=== PATIENT | female | born 1960 | race American Indian/Alaskan Native ===

== ENCOUNTER 2017-03-22 08:10 | Observation (INO) | payer MEDICAID, OTHER ==
[2017-03-22 08:10] VITALS: BMI 37.4
[2017-03-22 09:47] LABS: BASO # 0.1 K/uL (0.0-0.2); BASO % 0.8 % (0.0-2.0); EOS # 0.3 K/uL (0.0-0.7); EOS % 3.1 % (0.0-4.0); HEMOGLOBIN 11.5 g/dL (11.0-16.0); LYMPH # 2.8 K/uL (1.0-4.3); LYMPH % 33.3 % (20.0-40.0); MEAN CORPUSCULAR HEMOGLOBIN 28.1 pg (27.0-31.0); MEAN CORPUSCULAR HGB CONC 32.4 g/dL (33.0-37.0); MEAN PLATELET VOLUME 8.7 fL (7.2-11.7); MONO # 0.6 K/uL (0.0-0.8); MONO % 7.7 % (0.0-10.0); NEUT # 4.6 K/uL (1.8-7.0); NEUT % 55.1 % (50.0-75.0); RBC 4.08 Mil/uL (3.80-5.20); WHITE BLOOD COUNT 8.3 K/uL (4.8-10.8)
--- NOTE | 2017-03-22 09:56 | C.PDOC ---
History Of Present Illness 56-year-old female, PMHx includes TIA, presents to the emergency department with complaints of right extremity sided numbness since waking up at 07:00 this morning. patient notes a mild headache, which has now resolved. States she has a Hx of similar symptoms in past, preceding her TIA. Denies any nausea/vomiting , visual/speech changes, dizziness, or any other associated symptoms. No other complaints at this time. Time Seen by Provider: 03/22/17 08:37 Chief Complaint (Nursing): Upper Extremity Problem/Injury History Per: Patient History/Exam Limitations: no limitations Onset/Duration Of Symptoms: Mins Current Symptoms Are (Timing): Still Present Severity: Moderate Past Medical History Reviewed: Historical Data, Nursing Documentation, Vital Signs Vital Signs: Last Vital Signs Temp 98.4 F 03/22/17 08:15 Pulse 70 03/22/17 14:59 Resp 19 03/22/17 14:59 BP 141/79 03/22/17 14:59 Pulse Ox 100 03/22/17 14:59 - Medical History PMH: HTN, Hypercholesterolemia, TIA Denies: Chronic Kidney Disease Family History: States: No Known Family Hx - Social History Hx Alcohol Use: Yes Hx Substance Use: No - Immunization History Hx Tetanus Toxoid Vaccination: No Hx Influenza Vaccination: No Hx Pneumococcal Vaccination: No Review Of Systems Except As Marked, All Systems Reviewed And Found Negative. Constitutional: Negative for: Fever, Chills Cardiovascular: Negative for: Chest Pain, Palpitations Respiratory: Negative for: Shortness of Breath Gastrointestinal: Negative for: Nausea, Vomiting Musculoskeletal: Positive for: Arm Pain, Leg Pain Neurological: Positive for: Weakness, Numbness. Negative for: Headache, Dizziness Physical Exam - Physical Exam Appears: Non-toxic, No Acute Distress Skin: Warm, Dry, No Rash Head: Atraumatic, Normacephalic Eye(s): bilateral: Normal Inspection, PERRL, EOMI Nose: Normal Oral Mucosa: Moist Lips: Normal Appearing Neck: Normal ROM Cardiovascular: Rhythm Regular, No Friction Rub, No Murmur Respiratory: Normal Breath Sounds, No Accessory Muscle Use, No Rales, No Rhonchi , No Wheezing Gastrointestinal/Abdominal: Soft, No Tenderness Back: Normal Inspection, No CVA Tenderness, No Vertebral Tenderness, No Paraspinal Tenderness Extremity: Normal ROM, No Tenderness, No Swelling Neurological/Psych: Oriented x3, Normal Speech, Normal Cognition, Normal Cranial Nerves (normal gaze, tongue is midline, ), Normal Motor, Normal Reflexes , Other (Decreased sensation to the Right upper and lower extremities) Gait: Steady ED Course And Treatment - Laboratory Results Result Diagrams: 03/22/17 09:34 03/22/17 09:34 ECG: Interpreted By Co ECG Rhythm: Sinus Rhythm ECG Interpretation: Normal Interpretation Of ECG: normal axis, normal ST-T waves Rate From EC O2 Sat by Pulse Oximetry: 97 (RA) Pulse Ox Interpretation: Normal - Radiology CXR: Interpreted by Me CXR Interpretation: Yes: No Acute Disease. No: Infiltrates - CT Scan/US CT Head Other Rad Studies (CT/US): Read By Radiologist, Radiology Report Reviewed CT/US Interpretation: FINDINGS: HEMORRHAGE: No intracranial hemorrhage. BRAIN : No mass effect or edema. No atrophy or chronic microvascular ischemic changes. VENTRICLES: Unremarkable. No hydrocephalus. CALVARIUM: Unremarkable. PARANASAL SINUSES: Unremarkable as visualized. No significant inflammatory changes. MASTOID AIR CELLS: Unremarkable as visualized. No inflammatory changes. OTHER FINDINGS: None. IMPRESSION: Normal CT of the Head. No evidence of acute infarct. No intracranial mass or hemorrhage. NIHSS Stroke Scale - Date/Time Evaluation Performed Date Performed: 03/22/17 - How Severe is the Stoke Level of Consciousness: 0=Alert LOC to Questions: 0=Both comments correct LOC to commands: 0=Obeys both correctly Best Gaze: 0=Normal Visual: 0=No visual loss Facial: 0=Normal Motor Arm - Left: 0=No drift Motor Arm - Right: 0=No drift Motor Leg - Left: 0=No drift Motor Leg - Right: 0=No drift Limb Ataxia: 0=Absent Sensory: 1=Mild to moderate loss Best Language: 0=No aphasia Dysarthia: 0=Normal articulation Extinction & Inattention (Neglect): 0=Normal, no object Score: 1 Severity Of Stroke: 1-4= Minor Stroke rTPA Inclusion/Exclusion - Refusal of Treatment Patient Refused Treatment: No - Inclusion Criteria for Altepase Patient is 18 years or Older: Yes The Clinical Diagnosis of Ischemic Stroke That is Causing a Potentially Disabling Neurological Deficit: No Time of Onset is Well Established to be Less Than 270 Minute Before Treatment Would Begin: No Risk/Benefit Discussed With Patient/Family Member Present: No Medical Decision Making Medical Decision Making: The case was discussed with Dr. Galan (neurologist oncall) who states that the patient should get Aspirin and loaded with Plavix 300mg. Requests for MRA of the head and neck to be ordered. CAse [facility] who agrees to admit the patient to her Disposition - Disposition Disposition: HOSPITALIZED Disposition Time: 12:06 Condition: FAIR - Clinical Impression Clinical Impression: Numbness on right side, CVA (cerebral vascular accident) - PA / LAYOUT OPERATOR / Resident Statement MD/DO has reviewed & agrees with the documentation as recorded. - Scribe Statement The provider has reviewed the documentation as recorded by the Scribe (Humberto Lopez) All medical record entries made by the Scribe were at my direction and personally dictated by me. I have reviewed the chart and agree that the record accurately reflects my personal performance of the history, physical exam, medical decision making, and the department course for this patient. I have also personally directed, reviewed, and agree with the discharge instructions and disposition.
[2017-03-22 09:57] LABS: GFR AFRICAN-AMERICAN > 60; GFR NON-AFRICAN AMERICAN > 60
[2017-03-22 09:58] LABS: ALT/SGPT 23 U/L (9-52); AST/SGOT 25 U/L (14-36); BLOOD UREA NITROGEN 15 mg/dL (7-17); CALCIUM 9.4 mg/dl (8.6-10.4); HDL CHOLESTEROL 35 mg/dL (30-70); MEAN CELL VOLUME 86.7 fL (81.0-99.0)
--- NOTE | 2017-03-22 10:07 | CT ---
PROCEDURE: CT HEAD WITHOUT CONTRAST. HISTORY: R sided numbness, hx of TIA COMPARISON: 01/30/2016 TECHNIQUE: Axial computed tomography images were obtained through the head/brain without intravenous contrast. Radiation dose: Total exam DLP = 880.66 mGy-cm. This CT exam was performed using one or more of the following dose reduction techniques: Automated exposure control, adjustment of the mA and/or kV according to patient size, and/or use of iterative reconstruction technique. FINDINGS: HEMORRHAGE: No intracranial hemorrhage. BRAIN: No mass effect or edema. No atrophy or chronic microvascular ischemic changes. VENTRICLES: Unremarkable. No hydrocephalus. CALVARIUM: Unremarkable. PARANASAL SINUSES: Unremarkable as visualized. No significant inflammatory changes. MASTOID AIR CELLS: Unremarkable as visualized. No inflammatory changes. OTHER FINDINGS: None. IMPRESSION: Normal CT of the Head. No evidence of acute infarct. No intracranial mass or hemorrhage.
[2017-03-22 10:10] LABS: LDL CHOLESTEROL 119 mg/dL (0-129)
--- NOTE | 2017-03-22 10:13 | RAD ---
HISTORY: weakness COMPARISON: 01/30/2016 FINDINGS: LUNGS: No active pulmonary disease. PLEURA: No significant pleural effusion identified, no pneumothorax apparent. CARDIOVASCULAR: Normal. OSSEOUS STRUCTURES: No significant abnormalities. VISUALIZED UPPER ABDOMEN: Normal. OTHER FINDINGS: None. IMPRESSION: No active disease.
[2017-03-22 10:37] LABS: PROTHROMBIN TIME 11.3 SECONDS (9.7-12.2)
[2017-03-22] MEDS ORDERED: Potassium Chloride 20 mEq ER Tab PO STA (12:03)
[2017-03-22] MEDS ORDERED: Potassium Chloride 20 mEq ER Tab PO ONE (12:13)
--- NOTE | 2017-03-22 12:35 | CP.PCM.CON ---
History of Present Illness - History of Present Illness History of Present Illness: Mrs. Tadeo is a 56-year-old woman with a past medical history of hypertension and a previous ischemic stroke in 2013, who states that she woke up this morning with right arm and leg numbness and some weakness. Her previous stroke also involved the right side of the body and was associated with speech difficulty and facial droop. She improved completely from that stroke, but does have occasional recurrences of her symptoms. She says that last night she was okay, and she first noticed her symptoms when she woke up this morning. She did have a minor headache, but that is gone now. She denied visual changes , chest pain, shortness of breath, dizziness, or GI discomfort. Review of Systems - Review of Systems All systems: reviewed and no additional remarkable complaints except Past Patient History - Past Medical History & Family History Past Medical History?: Yes - Past Social History Smoking Status: Never Smoked - CARDIAC Hx Hypercholesterolemia: Yes Hx Hypertension: Yes - PULMONARY Hx Respiratory Disorders: No - NEUROLOGICAL Hx Transient Ischemic Attacks (TIA): Yes - HEENT Hx HEENT Problems: No - RENAL Hx Chronic Kidney Disease: No - ENDOCRINE/METABOLIC Hx Endocrine Disorders: No - HEMATOLOGICAL/ONCOLOGICAL Hx Blood Disorders: No - INTEGUMENTARY Hx Dermatological Problems: No - MUSCULOSKELETAL/RHEUMATOLOGICAL Hx Musculoskeletal Disorders: No Hx Falls: No - GASTROINTESTINAL Hx Gastrointestinal Disorders: No - GENITOURINARY/GYNECOLOGICAL Hx Genitourinary Disorders: No - PSYCHIATRIC Hx Substance Use: No - SURGICAL HISTORY Hx Surgeries: No - ANESTHESIA Hx Anesthesia: No Meds Allergies/Adverse Reactions: Allergies Allergy/AdvReac Type Severity Reaction Status Date / Time No Known Allergies Allergy Verified 03/22/17 08:18 Physical Exam - Constitutional Appears: Well - Head Exam Head Exam: ATRAUMATIC, NORMAL INSPECTION, NORMOCEPHALIC - Eye Exam Eye Exam: EOMI, Normal appearance, PERRL - ENT Exam ENT Exam: Mucous Membranes Moist, Normal Exam - Neck Exam Neck exam: Positive for: Normal Inspection - Respiratory Exam Respiratory Exam: Clear to Auscultation Bilateral, NORMAL BREATHING PATTERN - GI/Abdominal Exam GI & Abdominal Exam: Normal Bowel Sounds, Soft. absent: Tenderness - Rectal Exam Rectal Exam: Deferred - Extremities Exam Extremities exam: Positive for: normal inspection - Back Exam Back exam: NORMAL INSPECTION - Neurological Exam Neurological exam: Abnormal Gait, Alert, CN II-XII Intact, Oriented x3 - Expanded Neurological Exam Expanded Patient oriented to: person, place, time Cranial nerves: Facial Sensation: Abnormal Right Cerebellar Function: Finger to Nose: Normal, Heel to Hughes: Normal Upper motor neuron: Babinski Sign: Normal Sensory exam: Lower Extremity Light Touch: Abnormal Right, Lower Extremity Pin Prick: Abnormal Right, Upper Extremity Light Touch: Abnormal Right, Upper Extremity Pin Prick: Abnormal Right Neuro motor strength exam: Left Upper Extremity: 5, Right Upper Extremity: 4, Left Lower Extremity: 5, Right Lower Extremity: 4 DTR: Achilles Tendon Left: 2+, Achilles Tendon Right: 2+, Bicep Left: 2+, Bicep Right: 2+, Brachioradialis Left: 2+, Brachioradialis Right: 2+, Patellar Left: 2 +, Patellar Right: 2+, Tricep Left: 2+, Tricep Right: 2+ - Psychiatric Exam Psychiatric exam: Normal Affect, Normal Mood - Skin Skin Exam: Dry, Intact, Normal Color, Warm Results - Vital Signs Recent Vital Signs: Last Vital Signs Temp 98.4 F 03/22/17 08:15 Pulse 55 L 03/22/17 11:02 Resp 12 03/22/17 11:02 BP 150/82 03/22/17 11:02 Pulse Ox 97 03/22/17 12:08 - Labs Result Diagrams: 03/22/17 09:34 03/22/17 09:34 - Imaging and Cardiology CT scan - head Status: Image reviewed by me, Report reviewed by me (No acute findings. ) Assessment & Plan (1) CVA (cerebral vascular accident) Assessment and Plan: This could be resurgence of the previous stroke symptoms, or may be a new ischemic event. I recommend admission for work-up and treatment, and the followin. Telemetry 2. MRI of the brain and MRA of the head/neck without contrast 3. Echocardiogram with bubble study 4. Load with Plavix 300 mg PO once, and continue 75 mg daily along with aspirin 81 mg daily for a total of 21 days, after that, continue Plavix indefinitely. 5. Permissive hypertension (do not treat a BP that is lower than 220/110 mm Hg for the first 24-36 hours) 6. Check lipid panel, HbA1c, ESR, CRP, B12, folate and TSH 7. Statin to maintain LDL< 100 8. PT/OT eval and treat 9. DVT Px 10. Case management consult Status: Acute Priority: High (2) Numbness on right side Status: Acute
--- NOTE | 2017-03-22 13:25 | CP.PCM.HP ---
<Ashley Gupta E - Last Filed: 03/22/17 21:19> History of Present Illness - History of Present Illness History of Present Illness: HPI: Patient is a 56 year old female with past medical history of HTN, HLD, TIA , who presents to the ED with complaints with right arm and leg weakness and numbness that started at 7:00am this morning when she woke up. Patient reports that she was unable to move her right arm and leg, thus she had to tap herself multiple times in order to alleviate the numbness. Patient reports that she phoned a co-worker, who told her that she sounded funny and her speech was slurred. Patient reports that she had a headache this morning which lasted for 5 -10minutes. 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 Patient denies any chest pain, sob, nausea, vomiting, diaphoresis, fever, chills, fecal incontinence, urinary incontinence, history of clots and visual changes. Meds given in the ER: 1. Aspirin 325 mg PO 2. Plavix 300mg PO 3. K-dur 40meq Pmhx: TIA, HTN, HLD Pshx: Endometrial biopsy and D & C (2008) Fhx: Mother: uterine cancer; maternal gradmother: uterine cancer ( ); paternal grandmother: Lung cancer () Meds: Aspirin 325mg PO daily, HCTZ 12.5MG PO daily, Metoprolo tartrate 25mg PO daily. 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 Present on Admission - Present on Admission Any Indicators Present on Admission: No Review of Systems - Constitutional Constitutional: absent: Chills, Fever, Headache - EENT Eyes: absent: Blurred Vision, Loss of Peripheral Vision Ears: absent: Dizziness Nose/Mouth/Throat: absent: Neck Pain - Cardiovascular Cardiovascular: absent: Chest Pain, Diaphoresis, Dyspnea, Lightheadedness, Palpitations - Respiratory Respiratory: Dyspnea on Exertion. absent: Dyspnea - Gastrointestinal Gastrointestinal: absent: Abdominal Pain, Fecal Incontinence - Musculoskeletal Musculoskeletal: Muscle Weakness, Numbness. absent: Abnormal Gait - Neurological Neurological: Numbness, Weakness. absent: Dizziness - Endocrine Endocrine: absent: Fatigue, Palpitations Past Patient History - Past Medical History & Family History Past Medical History?: Yes - Past Social History Smoking Status: Never Smoked - CARDIAC Hx Hypercholesterolemia: Yes Hx Hypertension: Yes - PULMONARY Hx Respiratory Disorders: No - NEUROLOGICAL Hx Transient Ischemic Attacks (TIA): Yes - HEENT Hx HEENT Problems: No - RENAL Hx Chronic Kidney Disease: No - ENDOCRINE/METABOLIC Hx Endocrine Disorders: No - HEMATOLOGICAL/ONCOLOGICAL Hx Blood Disorders: No - INTEGUMENTARY Hx Dermatological Problems: No - MUSCULOSKELETAL/RHEUMATOLOGICAL Hx Musculoskeletal Disorders: No Hx Falls: No - GASTROINTESTINAL Hx Gastrointestinal Disorders: No - GENITOURINARY/GYNECOLOGICAL Hx Genitourinary Disorders: No - PSYCHIATRIC Hx Substance Use: No - SURGICAL HISTORY Hx Surgeries: No - ANESTHESIA Hx Anesthesia: No Meds Allergies/Adverse Reactions: Allergies Allergy/AdvReac Type Severity Reaction Status Date / Time No Known Allergies Allergy Verified 03/22/17 08:18 Physical Exam - Constitutional Appears: No Acute Distress - Head Exam Head Exam: NORMAL INSPECTION, NORMOCEPHALIC - Eye Exam Eye Exam: EOMI, Normal appearance - ENT Exam ENT Exam: Mucous Membranes Moist, Normal Exam - Respiratory Exam Respiratory Exam: Clear to Auscultation Bilateral, NORMAL BREATHING PATTERN - Cardiovascular Exam Cardiovascular Exam: REGULAR RHYTHM, +S1, +S2 - GI/Abdominal Exam GI & Abdominal Exam: Normal Bowel Sounds, Soft - Neurological Exam Neurological exam: Alert, CN II-XII Intact, Oriented x3 - Psychiatric Exam Psychiatric exam: Normal Affect, Normal Mood - Skin Skin Exam: Dry, Normal Color, Warm Results - Vital Signs Recent Vital Signs: Last Vital Signs Temp 98.4 F 03/22/17 08:15 Pulse 55 L 03/22/17 11:02 Resp 12 03/22/17 11:02 BP 150/82 03/22/17 11:02 Pulse Ox 97 03/22/17 12:08 - Labs Result Diagrams: 03/22/17 09:34 03/22/17 09:34 Labs: Laboratory Results - last 24 hr 03/22/17 12:41 POC Glucose (mg/dL) 90 Assessment & Plan (1) TIA (transient ischemic attack) Assessment and Plan: Right upper and lower extremity weakness and numbness Neurology Consult ---> Dr. Galan on board (Help appreciated) * F/U MRI of the brain and MRA of the head/neck without contrast * F/U Echocardiogram with bubble study * Load with Plavix 300 mg PO once, and continue 75 mg daily along with aspirin 81 mg daily for a total of 21 days, after that, continue Plavix indefinitely. * Permissive hypertension (do not treat a BP that is lower than 220/110 mm Hg for the first 24-36 hours) * F/u Check lipid panel, HbA1c, ESR, CRP, B12, folate and TSH * Statin to maintain LDL< [address] head: negative for intracranial hemorrhage, mass effect, edema, evidence of acute infarct, atrophy and chronic microvascular Chest X-ray: no active disease Neurocheck Q4 hours Crestor 20mg PO HS Metoprolol Tarate 25mg PO daily HCTZ 12.5 mg PO daily PT/OT Evaluation Status: Acute (2) HTN (hypertension) Assessment and Plan: Metoprolol Tarate 25mg PO daily HCTZ 12.5 mg PO daily Monitor Status: Acute (3) Hyperlipemia Assessment and Plan: F/u lipid panel in the am Crestor 20mg PO HS Status: Acute (4) History of TIA (transient ischemic attack) Assessment and Plan: July 2014 Aspirin 81mg PO Plavix 75mg PO daily Status: Acute (5) Prophylactic measure Assessment and Plan: SCD Lovenox 40mg SC daily Pepcid 20mg PO BID PT/OT Evaluation Status: Acute <Kimberly Kramer V - Last Filed: 03/23/17 17:34> Results - Vital Signs Recent Vital Signs: Last Vital Signs Temp 98.2 F 03/23/17 16:00 Pulse 67 03/23/17 16:00 Resp 18 03/23/17 16:00 BP 137/83 03/23/17 16:00 Pulse Ox 96 03/23/17 16:00 - Labs Result Diagrams: 03/23/17 07:02 03/23/17 07:02 Labs: Laboratory Results - last 24 hr 03/23/17 03/23/17 03/23/17 07:02 07:02 07:02 WBC 5.8 RBC 3.86 Hgb 11.1 Hct 33.3 L MCV 86.2 MCH 28.6 MCHC 33.2 RDW 15.0 H Plt Count 350 MPV 8.2 Neut % (Auto) 52.0 Lymph % (Auto) 33.3 Wirt % (Auto) 9.1 Eos % (Auto) 4.6 H Baso % (Auto) 1.0 Neut # 3.0 Lymph # 1.9 Wirt # 0.5 Eos # 0.3 Baso # 0.1 Sodium 137 Potassium 3.1 L Chloride 100 Carbon Dioxide 28 Anion Gap 13 BUN 16 Creatinine 0.8 Est GFR ( Amer) > 60 Est GFR (Non-Af Amer) > 60 POC Glucose (mg/dL) Random Glucose 123 H Hemoglobin A1c 6.0 Calcium 9.0 Total Bilirubin 0.5 AST 23 ALT 29 Alkaline Phosphatase 63 Total Protein 7.2 Albumin 3.5 Globulin 3.7 Albumin/Globulin Ratio 0.9 L Triglycerides 148 Cholesterol 172 LDL Cholesterol Direct 112 HDL Cholesterol 29 L TSH 3rd Generation 1.30 03/23/17 03/23/17 03/23/17 08:02 12:01 17:01 WBC RBC Hgb Hct MCV MCH MCHC RDW Plt Count MPV Neut % (Auto) Lymph % (Auto) Wirt % (Auto) Eos % (Auto) Baso % (Auto) Neut # Lymph # Wirt # Eos # Baso # Sodium Potassium Chloride Carbon Dioxide Anion Gap BUN Creatinine Est GFR ( Amer) Est GFR (Non-Af Amer) POC Glucose (mg/dL) 126 H 95 89 Random Glucose Hemoglobin A1c Calcium Total Bilirubin AST ALT Alkaline Phosphatase Total Protein Albumin Globulin Albumin/Globulin Ratio Triglycerides Cholesterol LDL Cholesterol Direct HDL Cholesterol TSH 3rd Generation Attending/Attestation - Attestation I have personally seen and examined this patient.: Yes I have fully participated in the care of the patient.: Yes I have reviewed all pertinent clinical information: Yes Notes (Text): This is late computer entry for 03/22/17. Patient seen, examined in [id number]. Patient reporting she had worsening of right upper extremity weakness with associated pains. Patient reports prior TIA in 2013 with similar symptoms. Patient denies trauma to the hand/arm/neck. Patient reports she notices she cannot slice cabbage or hold a pen with ease she normally dose. Neurology evaluated patient in emergency and has made recommendations. Patient reports she is claustrophobic; given Ativan 0.5mg IV X1 prior to going to MRI for further imaging. Discussed admitting orders with day-time internal controls manager as follows: Assessment/Plan (1) TIA (transient ischemic attack) Assessment and Plan: Right upper and lower extremity weakness and numbness Neurology Consult ---> Dr. Galan on board (Help appreciated) * F/U MRI of the brain and MRA of the head/neck without contrast * F/U Echocardiogram with bubble study * Load with Plavix 300 mg PO once, and continue 75 mg daily along with aspirin 81 mg daily for a total of 21 days, after that, continue Plavix indefinitely. * Permissive hypertension (do not treat a BP that is lower than 220/110 mm Hg for the first 24-36 hours) * F/u Check lipid panel, HbA1c, ESR, CRP, B12, folate and TSH * Statin to maintain LDL< [address] head: negative for intracranial hemorrhage, mass effect, edema, evidence of acute infarct, atrophy and chronic microvascular Chest X-ray (03/22/17): no active disease Neurocheck Q4 hours Crestor 20mg PO HS (home medication) Metoprolol Tarate 25mg PO daily (home medication) HCTZ 12.5 mg PO daily PT/OT Evaluation Status: Acute (2) HTN (hypertension) Assessment and Plan: Metoprolol Tarate 25mg PO daily HCTZ 12.5 mg PO daily Monitor Status: Acute (3) Hyperlipemia Assessment and Plan: F/u lipid panel in the am Crestor 20mg PO HS Status: Acute (4) History of TIA (transient ischemic attack) Assessment and Plan: July 2014 Aspirin 81mg PO Plavix 75mg PO daily Status: Acute (5) Prophylactic measure Assessment and Plan: SCD Lovenox 40mg SC daily Pepcid 20mg PO BID PT/OT Evaluation Status: Acute
[2017-03-22] MEDS ORDERED: Enoxaparin 40 mg Syringe ONE (14:50)
[2017-03-22] MEDS: Enoxaparin 40 mg Syringe SC SCH (14:51)
[2017-03-23 07:13] LABS: BASO # 0.1 K/uL (0.0-0.2); EOS # 0.3 K/uL (0.0-0.7); EOS % 4.6 % (0.0-4.0); HEMOGLOBIN 11.1 g/dL (11.0-16.0); LYMPH # 1.9 K/uL (1.0-4.3); LYMPH % 33.3 % (20.0-40.0); MEAN CELL VOLUME 86.2 fL (81.0-99.0); MEAN CORPUSCULAR HEMOGLOBIN 28.6 pg (27.0-31.0); MEAN CORPUSCULAR HGB CONC 33.2 g/dL (33.0-37.0); MEAN PLATELET VOLUME 8.2 fL (7.2-11.7); MONO # 0.5 K/uL (0.0-0.8); MONO % 9.1 % (0.0-10.0); RBC 3.86 Mil/uL (3.80-5.20); WHITE BLOOD COUNT 5.8 K/uL (4.8-10.8)
[2017-03-23 08:46] LABS: ALBUMIN 3.5 g/dL (3.5-5.0)
[2017-03-23 08:49] LABS: ALB/GLOB RATIO 0.9 (1.0-2.1); AST/SGOT 23 U/L (14-36); BLOOD UREA NITROGEN 16 mg/dL (7-17); GFR AFRICAN-AMERICAN > 60; GFR NON-AFRICAN AMERICAN > 60
[2017-03-23 08:50] LABS: ALT/SGPT 29 U/L (9-52); HDL CHOLESTEROL 29 mg/dL (30-70)
[2017-03-23 09:02] LABS: LDL CHOLESTEROL 112 mg/dL (0-129)
[2017-03-23] MEDS ORDERED: Metoprolol Succinate 25 mg XL Tab PO SCH (10:00)
[2017-03-23] MEDS ORDERED: Metoprolol Succinate 50 mg XL Tab PO SCH (10:00)
[2017-03-23] MEDS ORDERED: Potassium Chloride 20 mEq ER Tab PO ONE (10:15)
[2017-03-23] MEDS: Enoxaparin 40 mg Syringe SC SCH (10:26)
--- NOTE | 2017-03-23 12:42 | MRI ---
PROCEDURE: MRI BRAIN WITHOUT CONTRAST HISTORY: r/o CVA COMPARISON: CT head without contrast from 03/22/2017 and MRI brain with contrast from 02/01/2016. TECHNIQUE: Multiplanar, multisequence MR images of the brain were obtained without intravenous contrast enhancement. FINDINGS: HEMORRHAGE: None DWI: No evidence of an acute or early subacute infarction. BRAIN PARENCHYMA: Reyes-white matter differentiation is preserved. There is no mass, mass effect or abnormal extra-axial fluid collection. There is no territorial infarction. The midline sagittal structures are normal. VENTRICLES: There is mild global parenchymal volume loss and proportionate enlargement of the ventricles and cortical sulci, slightly advanced for the patient's age. . CRANIUM: There is normal bone marrow signal pattern. ORBITS: Grossly unremarkable. PARANASAL SINUSES/MASTOIDS: Predominantly clear VASCULAR SYSTEM: There are normal signal voids in the larger intracranial arteries. OTHER FINDINGS: None. IMPRESSION: No acute intracranial abnormality. Specifically, no evidence of acute infarction. Mild age advanced global parenchymal volume loss.
--- NOTE | 2017-03-23 12:43 | MRI ---
PROCEDURE: Magnetic Resonance Angiography Brain HISTORY: r/o CVA COMPARISON: None available. TECHNIQUE: 3D time of flight MR angiography of the intracranial arteries was performed. Rotating maximum intensity projection images were generated. FINDINGS: INTERNAL CEREBRAL ARTERIES: Normal in caliber. The skull base, petrous, cavernous and supraclinoid segments are bilaterally widely patient. ANTERIOR CEREBRAL ARTERIES: Normal in caliber. A1 and A2 segments are widely patent. Smaller distal branches unremarkable, as visualized. MIDDLE CEREBRAL ARTERIES: Normal in caliber. M1 and M2 segments are widely patent. Perisylvian branches grossly symmetric. POSTERIOR CIRCULATION: Basilar Artery: Normal in caliber. Distal Vertebral Arteries: Normal in caliber. The left vertebral artery is dominant, an anatomic variant. Posterior Cerebral Arteries: Normal in caliber. There is origin of bilateral posterior cerebral arteries, an anatomic variant. Posterior Inferior Cerebellar Arteries: Normal in caliber. ANEURYSM/ VASCULAR MALFORMATIONS: None. OTHER FINDINGS: None. IMPRESSION: Normal MR angiography of the brain with anatomic variants as described above. A preliminary report was provided by [employer].
--- NOTE | 2017-03-23 12:43 | MRI ---
PROCEDURE: MR Angiography of the neck without contrast marisela HISTORY: R ext sided weakness COMPARISON: None available. TECHNIQUE: 3D [id number] angiography of the neck was performed. Rotating maximum intensity projection images of the cervical carotid and vertebral arteries were generated. The origins of the common carotid arteries were not visualized, which is a limitation inherent to the non-contrast time of flight technique. Examination is limited by patient motion. FINDINGS: RIGHT CAROTID ARTERIES: Common Carotid Artery: Normal. Carotid Bifurcation: Normal. Internal Carotid Artery:Normal. External Carotid Artery (proximal branches): Normal. LEFT CAROTID ARTERIES: Common Carotid Artery: Normal. Carotid Bifurcation: Normal. Internal Carotid Artery:Normal. External Carotid Artery (proximal branches): Normal. VERTEBRAL ARTERIES: Right Vertebral Artery: Normal. Left Vertebral Artery: Normal. The left vertebral artery is dominant, an anatomic variant. OTHER FINDINGS: None. IMPRESSION: Limited examination due to patient motion, allowing for this no hemodynamically significant stenosis. A preliminary report was provided by [employer] services.
--- NOTE | 2017-03-23 18:30 | CP.PCM.PN ---
<Amanda Mxion - Last Filed: 03/23/17 18:26> Subjective - Date & Time of Evaluation Date of Evaluation: 03/23/17 Time of Evaluation: 18:27 - Subjective Subjective: Medicine Progress Note- Dr. Kramer Service Patient was seen and examined at bedside in no acute distress. Patient states she is feeling better. She still has chest pressure that radiates to her back when laying down which is relieved when sitting. Patient was explaining that with her right upper extremity and right lower extremity weakness, she has difficulty cutting vegetables and wearing certain shoes. Patient denies having chest pain, abdominal pain, palpitations, shortness of breath, nausea, vomiting , and dizziness. Objective - Vital Signs/Intake and Output Vital Signs (last 24 hours): Temp Pulse Resp BP Pulse Ox 98.2 F 67 18 138/70 96 03/23/17 16:00 03/23/17 16:00 03/23/17 16:00 03/23/17 18:00 03/23/17 16:00 - Medications Medications: Current Medications Aspirin (Ecotrin) 81 mg PO DAILY [facility] Stop: 04/13/17 10:01 Last Admin: 03/23/17 10:25 Dose: 81 mg Clopidogrel Bisulfate (Plavix) 75 mg PO DAILY [facility] Stop: 04/13/17 10:01 Last Admin: 03/23/17 10:26 Dose: 75 mg Enoxaparin Sodium (Lovenox) 40 mg SC DAILY [facility] Last Admin: 03/23/17 10:26 Dose: 40 mg Famotidine (Pepcid) 20 mg PO BID [facility] Last Admin: 03/23/17 18:00 Dose: 20 mg Hydrochlorothiazide (Microzide) 12.5 mg PO DAILY [facility] Last Admin: 03/23/17 10:25 Dose: 12.5 mg Metoprolol Tartrate (Lopressor) 25 mg PO BID [facility] Last Admin: 03/23/17 18:00 Dose: 25 mg Rosuvastatin Calcium (Crestor) 20 mg PO HS [facility] Last Admin: 03/22/17 21:21 Dose: 20 mg - Labs Labs: 03/23/17 07:02 03/23/17 07:02 PT 11.3 SECONDS (9.7-12.2) 03/22/17 10:17 INR 1.0 03/22/17 10:17 APTT 30 SECONDS (21-34) 03/22/17 10:17 - Constitutional Appears: No Acute Distress - Head Exam Head Exam: NORMAL INSPECTION, NORMOCEPHALIC - Eye Exam Eye Exam: EOMI, Normal appearance - ENT Exam ENT Exam: Mucous Membranes Moist - Neck Exam Neck Exam: Full ROM, Normal Inspection - Respiratory Exam Respiratory Exam: Clear to Ausculation Bilateral, NORMAL BREATHING PATTERN. absent: Rhonchi, Wheezes - Cardiovascular Exam Cardiovascular Exam: REGULAR RHYTHM, +S1, +S2 - GI/Abdominal Exam GI & Abdominal Exam: Soft, Normal Bowel Sounds. absent: Tenderness - Extremities Exam Extremities Exam: Normal Inspection. absent: Calf Tenderness, Pedal Edema, Tenderness - Neurological Exam Neurological Exam: Alert, Awake, CN II-XII Intact, Oriented x3 Neuro motor strength exam: Left Upper Extremity: 5, Right Upper Extremity: 4, Left Lower Extremity: 5, Right Lower Extremity: 4 - Psychiatric Exam Psychiatric exam: Normal Affect, Normal Mood - Skin Skin Exam: Dry, Intact, Normal Color, Warm Assessment and Plan (1) TIA (transient ischemic attack) Assessment & Plan: Right upper and lower extremity weakness and numbness Neurology Consult ---> Dr. Galan on board (Help appreciated) * MRI of the brain- no acute intracranial abnormality; no evidence of acute infarction; mild age advanced global parenchymal volume loss. * MRA of the head/neck without contrast: Normal * F/U Echocardiogram with bubble study * Load with Plavix 300 mg PO once, and continue 75 mg daily along with aspirin 81 mg daily for a total of 21 days, after that, continue Plavix indefinitely. * Permissive hypertension (do not treat a BP that is lower than 220/110 mm Hg for the first 24-36 hours) * Lipid panel- TG 148, Chol 172, LDL 112, HDL 29 * HbA1c 6.0 * F/U ESR, CRP, B12, Folate * TSH 1.30 * Statin to maintain LDL< [address] head: negative for intracranial hemorrhage, mass effect, edema, evidence of acute infarct, atrophy and chronic microvascular Chest X-ray: no active disease Neurocheck Q4 hours Crestor 20mg PO HS Metoprolol Tarate 25mg PO daily HCTZ 12.5 mg PO daily PT/OT Evaluation Status: Acute (2) History of TIA (transient ischemic attack) Assessment & Plan: July 2014 Aspirin 81mg PO Plavix 75mg PO daily Status: Acute (3) Hyperlipemia Assessment & Plan: Lipid panel- TG 148, Chol 172, LDL 112, HDL 29 Crestor 20mg PO HS Status: Acute (4) HTN (hypertension) Assessment & Plan: Metoprolol Tarate 25mg PO daily HCTZ 12.5 mg PO daily Monitor Status: Acute (5) Hypokalemia Assessment & Plan: K+ 3.1 on 03/23/17 Repleted with K-Dur 40 mEq PO Monitor Status: Acute (6) Prophylactic measure Assessment & Plan: SCD Lovenox 40mg SC daily Pepcid 20mg PO BID PT/OT Evaluation Status: Acute <YuliyaKimberly buitrago V - Last Filed: 03/24/17 09:50> Objective - Vital Signs/Intake and Output Vital Signs (last 24 hours): Temp Pulse Resp BP Pulse Ox 98 F 69 18 136/85 97 03/24/17 07:25 03/24/17 07:25 03/24/17 07:25 03/24/17 07:25 03/24/17 07:25 - Medications Medications: Current Medications Aspirin (Ecotrin) 81 mg PO DAILY [facility] Stop: 04/13/17 10:01 Last Admin: 03/23/17 10:25 Dose: 81 mg Clopidogrel Bisulfate (Plavix) 75 mg PO DAILY [facility] Stop: 04/13/17 10:01 Last Admin: 03/23/17 10:26 Dose: 75 mg Enoxaparin Sodium (Lovenox) 40 mg SC DAILY [facility] Last Admin: 03/23/17 10:26 Dose: 40 mg Famotidine (Pepcid) 20 mg PO BID [facility] Last Admin: 03/23/17 18:00 Dose: 20 mg Hydrochlorothiazide (Microzide) 12.5 mg PO DAILY [facility] Last Admin: 03/23/17 10:25 Dose: 12.5 mg Metoprolol Tartrate (Lopressor) 25 mg PO BID [facility] Last Admin: 03/23/17 18:00 Dose: 25 mg Rosuvastatin Calcium (Crestor) 20 mg PO HS [facility] Last Admin: 03/23/17 21:14 Dose: 20 mg - Labs Labs: 03/24/17 07:40 03/24/17 07:40 PT 11.3 SECONDS (9.7-12.2) 07/05/17 10:17 INR 1.0 03/22/17 10:17 APTT 30 SECONDS (21-34) 03/22/17 10:17 Attending/Attestation - Attestation I have personally seen and examined this patient.: Yes I have fully participated in the care of the patient.: Yes I have reviewed all pertinent clinical information, including history, physical exam and plan: Yes Notes (Text): This is late computer entry for 03/23/17. Patient seen, examined and case discussed with day-time director international. Patient seen this morning during rounds. Patient reports she is feeling better. Patient reports her dexterity of right hand is improved. Patient seen with right hand with pen which improved. Patient completed MRI/MRA imaging yesterday afternoon. Reports available at end of the day. Patient completed echocardiogram awaiting official report. Pending completion of studies with reports. patient is possible discharge tomorrow. Assessment/Plan (1) TIA (transient ischemic attack) Assessment & Plan: Right upper and lower extremity weakness and numbness Neurology Consult ---> Dr. Galan on board (Help appreciated) * MRI of the brain- no acute intracranial abnormality; no evidence of acute infarction; mild age advanced global parenchymal volume loss. * MRA of the head/neck without contrast: Normal * F/U Echocardiogram with bubble study pending * Load with Plavix 300 mg PO once, and continue 75 mg daily along with aspirin 81 mg daily for a total of 21 days, after that, continue Plavix indefinitely. * Permissive hypertension (do not treat a BP that is lower than 220/110 mm Hg for the first 24-36 hours) * Lipid panel- TG 148, Chol 172, LDL 112, HDL 29 * HbA1c 6.0 * TSH 1.30 * Statin to maintain LDL< [address] head: negative for intracranial hemorrhage, mass effect, edema, evidence of acute infarct, atrophy and chronic microvascular Chest X-ray: no active disease Neurocheck Q4 hours Crestor 20mg PO HS Metoprolol Tarate 25mg PO daily updated in EMR HCTZ 12.5 mg PO daily PT/OT Evaluation Status: Acute (2) History of TIA (transient ischemic attack) Assessment & Plan: July 2014 Aspirin 81mg PO Plavix 75mg PO daily Status: Acute (3) Hyperlipemia Assessment & Plan: Lipid panel- TG 148, Chol 172, LDL 112, HDL 29 Crestor 20mg PO HS Status: Acute (4) HTN (hypertension) Assessment & Plan: Metoprolol Tarate 25mg PO daily HCTZ 12.5 mg PO daily Monitor Status: Acute (5) Hypokalemia Assessment & Plan: Monitor and adjust Status: Acute (6) Prophylactic measure Assessment & Plan: SCD b/l Lovenox 40mg SC daily Pepcid 20mg PO BID PT/OT Evaluation Status: Acute
--- NOTE | 2017-03-23 23:57 | CARD ---
APPROVED REPORT EXAM: Two-dimensional and M-mode echocardiogram with Doppler and color Doppler. Other Information Quality : GoodRhythm : NSR INDICATION CVA/TIA RISK FACTORS Hypertension Hyperlipidemia M-Mode DIMENSIONS RVDd1.18 (2.1-3.2cm)Left Atrium (MM)3.78 (2.5-4.0cm) IVSd0.97 (0.7-1.1cm)Aortic Root2.64 (2.2-3.7cm) LVDd5.38 (4.0-5.6cm)Aortic Cusp Exc.1.87 (1.5-2.0cm) PWd0.83 (0.7-1.1cm)FS (%) 32 % LVDs3.64 (2.0-3.8cm)LVEF (%)60 (>50%) Mitral Valve MV E Hnqojdld83.7cm/sMV A Jxjaphgx532.8cm/sE/A ratio0.8 TDI E/Lateral E'0.0E/Medial E'0.0 Tricuspid Valve TR Peak [id number]/sTR Peak [id number] LEFT VENTRICLE The left ventricle is normal size. There is normal left ventricular wall thickness. Left ventricle systolic function is normal. The Ejection Fraction is 55-60%. There is normal LV segmental wall motion. Tissue Doppler imaging reveals abnormal left ventricular diastolic dysfunction. RIGHT VENTRICLE The right ventricle is normal size. There is normal right ventricular wall thickness. The right ventricular systolic function is normal. ATRIA The left atrium size is normal. The right atrium size is normal. The interatrial septum is intact with no evidence for an atrial septal defect. AORTIC VALVE The aortic valve is normal in structure. No aortic regurgitation is present. There is no aortic valvular stenosis. There is no aortic valvular vegetation. MITRAL VALVE The mitral valve is normal in structure. There is no evidence of mitral valve prolapse. There is no mitral valve stenosis. There is no mitral valve regurgitation noted. TRICUSPID VALVE The tricuspid valve is normal in structure. There is mild tricuspid regurgitation. Right ventricular systolic pressure is estimated at 30-40 mmHg. There is mild pulmonary hypertension. PULMONIC VALVE The pulmonic valve is not well visualized. There is mild pulmonic valvular regurgitation. GREAT VESSELS The aortic root is normal in size. PERICARDIAL EFFUSION There is no significant pericardial effusion. <Conclusion> Left ventricle systolic function is normal. The Ejection Fraction is 55-60%. Diastolic dysfunction. No aortic regurgitation is present. There is no mitral valve regurgitation noted. There is mild tricuspid regurgitation. There is mild pulmonary hypertension. There is mild pulmonic valvular regurgitation.
--- NOTE | 2017-03-24 07:10 | CARD ---
APPROVED REPORT EKG Measurement Heart [id number] <Conclusion> Normal sinus rhythm Normal ECG
[2017-03-24 07:50] LABS: BASO # 0.1 K/uL (0.0-0.2); BASO % 0.9 % (0.0-2.0); EOS # 0.3 K/uL (0.0-0.7); EOS % 4.3 % (0.0-4.0); HEMOGLOBIN 11.3 g/dL (11.0-16.0); LYMPH % 32.4 % (20.0-40.0); MEAN CELL VOLUME 86.5 fL (81.0-99.0); MEAN CORPUSCULAR HGB CONC 33.5 g/dL (33.0-37.0); MONO # 0.6 K/uL (0.0-0.8); MONO % 9.4 % (0.0-10.0); NEUT # 3.3 K/uL (1.8-7.0); NRBC % 0.1 % (0.0-2.0); RBC 3.9 Mil/uL (3.80-5.20); RED CELL DISTRIBUTION WIDTH 14.9 % (11.5-14.5); WHITE BLOOD COUNT 6.3 K/uL (4.8-10.8)
[2017-03-24 08:05] VITALS: PULSE 69; RESP 18; TEMP 98; O2SAT 97
[2017-03-24 08:05] LABS: ALBUMIN 3.5 g/dL (3.5-5.0)
[2017-03-24 08:08] LABS: ALT/SGPT 28 U/L (9-52); AST/SGOT 21 U/L (14-36); BLOOD UREA NITROGEN 11 mg/dL (7-17); GFR AFRICAN-AMERICAN > 60; GFR NON-AFRICAN AMERICAN > 60
[2017-03-24 08:09] LABS: CALCIUM 8.9 mg/dl (8.6-10.4); MAGNESIUM 1.5 mg/dL (1.6-2.3)
[2017-03-24] MEDS: Enoxaparin 40 mg Syringe SC SCH (09:55)
[2017-03-24 09:56] VITALS: BP 126/78
[2017-03-24] MEDS ORDERED: Magnesium Citrate Oral SOL (300 ml) PO ONE (12:03)
[2017-03-24] MEDS ORDERED: Potassium Chloride 20 mEq ER Tab PO SCH (12:15)
--- NOTE | 2017-03-24 15:42 | CP.PCM.DIS ---
<Gaviota Mendez - Last Filed: 03/24/17 15:48> Provider - Provider Date of Admission: 03/22/17 12:05 Attending physician: Kimberly Kramer DO Primary care physician: Dr. Conner Consults: Neurology: Dr. Galan Time Spent in preparation of Discharge (in minutes): 45 Diagnosis - Discharge Diagnosis (1) Hyperlipidemia Status: Chronic (2) History of TIA (transient ischemic attack) Status: Acute (3) HTN (hypertension) Status: Chronic Hospital Course - Lab Results Lab Results: Most Recent Lab Values WBC 6.3 K/uL (4.8-10.8) 03/24/17 07:40 RBC 3.90 Mil/uL (3.80-5.20) 03/24/17 07:40 Hgb 11.3 g/dL (11.0-16.0) 03/24/17 07:40 Hct 33.7 % (34.0-47.0) L 03/24/17 07:40 MCV 86.5 fL (81.0-99.0) 03/24/17 07:40 MCH 29.0 pg (27.0-31.0) 03/24/17 07:40 MCHC 33.5 g/dL (33.0-37.0) 03/24/17 07:40 RDW 14.9 % (11.5-14.5) H 03/24/17 07:40 Plt Count 357 K/uL (130-400) 03/24/17 07:40 MPV 8.0 fL (7.2-11.7) 03/24/17 07:40 Neut % (Auto) 53.0 % (50.0-75.0) 03/24/17 07:40 Lymph % (Auto) 32.4 % (20.0-40.0) 03/24/17 07:40 [place] % (Auto) 9.4 % (0.0-10.0) 03/24/17 07:40 Eos % (Auto) 4.3 % (0.0-4.0) H 03/24/17 07:40 Baso % (Auto) 0.9 % (0.0-2.0) 03/24/17 07:40 Neut # 3.3 K/uL (1.8-7.0) 03/24/17 07:40 Lymph # 2.0 K/uL (1.0-4.3) 03/24/17 07:40 [place] # 0.6 K/uL (0.0-0.8) 03/24/17 07:40 Eos # 0.3 K/uL (0.0-0.7) 03/24/17 07:40 Baso # 0.1 K/uL (0.0-0.2) 03/24/17 07:40 PT 11.3 SECONDS (9.7-12.2) 03/22/17 10:17 INR 1.0 03/22/17 10:17 APTT 30 SECONDS (21-34) 03/22/17 10:17 Sodium 139 mmol/L (132-148) 03/24/17 07:40 Potassium 3.3 mmol/L (3.6-5.2) L 03/24/17 07:40 Chloride 101 mmol/L (98-107) 03/24/17 07:40 Carbon Dioxide 28 mmol/L (22-30) 03/24/17 07:40 Anion Gap 13 (10-20) 03/24/17 07:40 BUN 11 mg/dL (7-17) 03/24/17 07:40 Creatinine 0.8 MG/DL (0.7-1.2) 03/24/17 07:40 Est GFR ( Amer) > 60 03/24/17 07:40 Est GFR (Non-Af Amer) > 60 03/24/17 07:40 POC Glucose (mg/dL) 114 mg/dL (65-110) H 03/24/17 11:31 Random Glucose 110 mg/dL (65-105) H 03/24/17 07:40 Hemoglobin A1c 6.0 % (4.2-6.5) 03/23/17 07:02 Calcium 8.9 mg/dl (8.6-10.4) 03/24/17 07:40 Phosphorus 3.2 mg/dL (2.5-4.5) 03/24/17 07:40 Magnesium 1.5 mg/dL (1.6-2.3) L 03/24/17 07:40 Total Bilirubin 0.5 mg/dL (0.2-1.3) 03/24/17 07:40 AST 21 U/L (14-36) 03/24/17 07:40 ALT 28 U/L (9-52) 03/24/17 07:40 Alkaline Phosphatase 65 U/L (38-126) 03/24/17 07:40 Troponin I < 0.0120 ng/mL (0.00-0.120) 03/22/17 09:34 Total Protein 7.2 g/dL (6.3-8.3) 03/24/17 07:40 Albumin 3.5 g/dL (3.5-5.0) 03/24/17 07:40 Globulin 3.7 gm/dL (2.2-3.9) 03/24/17 07:40 Albumin/Globulin Ratio 1.0 (1.0-2.1) 03/24/17 07:40 Triglycerides 148 mg/dL (0-149) 03/23/17 07:02 Cholesterol 172 mg/dL (0-199) 03/23/17 07:02 LDL Cholesterol Direct 112 mg/dL (0-129) 03/23/17 07:02 HDL Cholesterol 29 mg/dL (30-70) L 03/23/17 07:02 TSH 3rd Generation 1.30 mIU/L (0.46-4.68) 03/23/17 07:02 - Hospital Course Hospital Course: 56 year old female with past medical history of TIA, HTN and HLD was admitted to hospital for right sided weakness and numbness that she woke up with in the morning of admission. CT scan on admission was negative. Patient was given loading dose of Aspirin and Plavix in ED. Neurology, Dr. Galan was consulted. MRI of brain showed no acute changes. MRA of brain and neck were also negative. Patient had echocardiogram done which was normal with EF of 55-60%. Lab work showed HgbA1c of 6.0, a normal lipid panel and a normal TSH. Patient' s symptoms resolved and she was discharged home. Patient is safe for discharge home. Patient is to follow up with PMD, Dr. Rosen upon discharge. Patient is to continue taking Aspirin 81 mg po qd and Plavix 75 mg po qd for 21 days. After 21 days are complete, patient is to stop Aspirin and continue taking Plavix 75 mg po qd indefinitely. Patient is to continue taking her home medications as prescribed. If symptoms return, please go to ED. This is a summary of patient's hospital stay. Please see EMR for full details. - Date & Time of H&P Date of H&P: 03/24/17 Time of H&P: 15:51 Discharge Exam - Head Exam Head Exam: NORMAL INSPECTION, NORMOCEPHALIC - Eye Exam Eye Exam: EOMI - Respiratory Exam Respiratory Exam: Clear to PA & Lateral, NORMAL BREATHING PATTERN. absent: Accessory Muscle Use, Rales, Rhonchi, Wheezes, Respiratory Distress - Cardiovascular Exam Cardiovascular Exam: REGULAR RHYTHM, +S1, +S2. absent: Diastolic murmur, Gallop , Rubs, Systolic Murmur - GI/Abdominal Exam GI & Abdominal Exam: Normal Bowel Sounds, Soft. absent: Distended, Firm, Guarding, Rigid, Tenderness - Extremities Exam Additional comments: no edema or tenderness - Neurological Exam Neurological exam: Alert, Oriented x3 - Psychiatric Exam Psychiatric exam: Normal Affect, Normal Mood - Skin Skin Exam: Dry, Intact, Normal Color, Warm Discharge Plan - Discharge Medications Prescriptions: RX: Aspirin [Ecotrin] 81 mg PO DAILY #21 RX: Clopidogrel [Plavix] 75 mg PO DAILY #30 tab - Follow Up Plan Condition: FAIR Disposition: HOME/ ROUTINE Instructions: Aspirin (By mouth), Clopidogrel (By mouth), Heart Healthy Diet ( DC), Hypertension (DC), Stroke (DC) Additional Instructions: Patient is safe for discharge home. Patient is to follow up with PMD, Dr. Rosen upon discharge. Patient is to continue taking Aspirin 81 mg po qd and Plavix 75 mg po qd for 21 days. After 21 days are complete, patient is to stop Aspirin and continue taking Plavix 75 mg po qd indefinitely. Patient is to continue taking her home medications as prescribed. If symptoms return, please go to ED. Referrals: Tre Conner, FIDEL, CHEMICAL PRODUCTION TECHNICIAN [Advanced Practice Nurse] - <Kimberly Kramer V - Last Filed: 03/24/17 22:29> Provider - Provider Date of Admission: 03/22/17 12:05 Attending physician: Kimberly Kramer, Hospital Course - Lab Results Lab Results: Most Recent Lab Values WBC 6.3 K/uL (4.8-10.8) 03/24/17 07:40 RBC 3.90 Mil/uL (3.80-5.20) 03/24/17 07:40 Hgb 11.3 g/dL (11.0-16.0) 03/24/17 07:40 Hct 33.7 % (34.0-47.0) L 03/24/17 07:40 MCV 86.5 fL (81.0-99.0) 03/24/17 07:40 MCH 29.0 pg (27.0-31.0) 03/24/17 07:40 MCHC 33.5 g/dL (33.0-37.0) 03/24/17 07:40 RDW 14.9 % (11.5-14.5) H 03/24/17 07:40 Plt Count 357 K/uL (130-400) 03/24/17 07:40 MPV 8.0 fL (7.2-11.7) 03/24/17 07:40 Neut % (Auto) 53.0 % (50.0-75.0) 03/24/17 07:40 Lymph % (Auto) 32.4 % (20.0-40.0) 03/24/17 07:40 [place] % (Auto) 9.4 % (0.0-10.0) 03/24/17 07:40 Eos % (Auto) 4.3 % (0.0-4.0) H 03/24/17 07:40 Baso % (Auto) 0.9 % (0.0-2.0) 03/24/17 07:40 Neut # 3.3 K/uL (1.8-7.0) 03/24/17 07:40 Lymph # 2.0 K/uL (1.0-4.3) 03/24/17 07:40 [place] # 0.6 K/uL (0.0-0.8) 03/24/17 07:40 Eos # 0.3 K/uL (0.0-0.7) 03/24/17 07:40 Baso # 0.1 K/uL (0.0-0.2) 03/24/17 07:40 PT 11.3 SECONDS (9.7-12.2) 03/22/17 10:17 INR 1.0 03/22/17 10:17 APTT 30 SECONDS (21-34) 03/22/17 10:17 Sodium 139 mmol/L (132-148) 03/24/17 07:40 Potassium 3.3 mmol/L (3.6-5.2) L 03/24/17 07:40 Chloride 101 mmol/L (98-107) 03/24/17 07:40 Carbon Dioxide 28 mmol/L (22-30) 03/24/17 07:40 Anion Gap 13 (10-20) 03/24/17 07:40 BUN 11 mg/dL (7-17) 03/24/17 07:40 Creatinine 0.8 MG/DL (0.7-1.2) 03/24/17 07:40 Est GFR ( Amer) > 60 03/24/17 07:40 Est GFR (Non-Af Amer) > 60 03/24/17 07:40 POC Glucose (mg/dL) 114 mg/dL (65-110) H 03/24/17 11:31 Random Glucose 110 mg/dL (65-105) H 03/24/17 07:40 Hemoglobin A1c 6.0 % (4.2-6.5) 03/23/17 07:02 Calcium 8.9 mg/dl (8.6-10.4) 03/24/17 07:40 Phosphorus 3.2 mg/dL (2.5-4.5) 03/24/17 07:40 Magnesium 1.5 mg/dL (1.6-2.3) L 03/24/17 07:40 Total Bilirubin 0.5 mg/dL (0.2-1.3) 03/24/17 07:40 AST 21 U/L (14-36) 03/24/17 07:40 ALT 28 U/L (9-52) 03/24/17 07:40 Alkaline Phosphatase 65 U/L (38-126) 03/24/17 07:40 Troponin I < 0.0120 ng/mL (0.00-0.120) 03/22/17 09:34 Total Protein 7.2 g/dL (6.3-8.3) 03/24/17 07:40 Albumin 3.5 g/dL (3.5-5.0) 03/24/17 07:40 Globulin 3.7 gm/dL (2.2-3.9) 03/24/17 07:40 Albumin/Globulin Ratio 1.0 (1.0-2.1) 03/24/17 07:40 Triglycerides 148 mg/dL (0-149) 03/23/17 07:02 Cholesterol 172 mg/dL (0-199) 03/23/17 07:02 LDL Cholesterol Direct 112 mg/dL (0-129) 03/23/17 07:02 HDL Cholesterol 29 mg/dL (30-70) L 03/23/17 07:02 TSH 3rd Generation 1.30 mIU/L (0.46-4.68) 03/23/17 07:02 Attending/Attestation - Attestation I have personally seen and examined this patient.: Yes I have fully participated in the care of the patient.: Yes I have reviewed all pertinent clinical information, including history, physical exam and plan: Yes Notes (Text): Patient seen, examined and case discussed with day-time resident. Patient report she is feeling better, the dexterity in her right hand paresh when she holds a pen has improved and is eager to go home. Patient completed imaging and echocardiogram does not show acute abnormality. Electrolyte repleted prior to discharge. Per neurology recommendations, patient advised Aspirin 81mg PO daily and Plavix 75mg PO daily for 21 days, and Plavix indefinitely. Patient advised to stop home aspirin 325mg Po daily. Patient to resume anti-hypertensives and statin as she was previously taking. Patient recommended to follow-up with her primary care doctor. Patient recommended to follow-up with neurology or referral for neurology per primary care doctor. Discussed discharge instructions with discharge order with resident and patient at bedside. Patient verbalizes understanding and agrees. Patient noted if she has any abnormal or uncontrolled bleeding with aspirin and plavix to stop and be evaluated immediately. This is a summary of patient's hospitalization. Please see EMR for further details.
--- NOTE | 2017-03-24 16:12 | CP.PCM.PN ---
Subjective - Date & Time of Evaluation Date of Evaluation: 03/24/17 Time of Evaluation: 16:08 - Subjective Subjective: Stroke core measure Objective - Vital Signs/Intake and Output Vital Signs (last 24 hours): Temp Pulse Resp BP Pulse Ox 98 F 69 18 126/78 97 03/24/17 07:25 03/24/17 07:25 03/24/17 07:25 03/24/17 09:54 03/24/17 07:25 - Medications Medications: Current Medications Aspirin (Ecotrin) 81 mg PO DAILY [facility] Stop: 04/13/17 10:01 Last Admin: 03/24/17 09:54 Dose: 81 mg Clopidogrel Bisulfate (Plavix) 75 mg PO DAILY [facility] Stop: 04/13/17 10:01 Last Admin: 03/24/17 09:54 Dose: 75 mg Enoxaparin Sodium (Lovenox) 40 mg SC DAILY [facility] Last Admin: 03/24/17 09:55 Dose: 40 mg Famotidine (Pepcid) 20 mg PO BID [facility] Last Admin: 03/24/17 09:54 Dose: 20 mg Hydrochlorothiazide (Microzide) 12.5 mg PO DAILY [facility] Last Admin: 03/24/17 09:54 Dose: 12.5 mg Metoprolol Tartrate (Lopressor) 25 mg PO BID [facility] Last Admin: 03/24/17 09:54 Dose: 25 mg Potassium Chloride (K-Dur 20 Meq Er Tab) 40 meq PO DAILY [facility] Last Admin: 03/24/17 15:10 Dose: 40 meq Rosuvastatin Calcium (Crestor) 20 mg PO HS [facility] Last Admin: 03/23/17 21:14 Dose: 20 mg - Labs Labs: 03/24/17 07:40 03/24/17 07:40 PT 11.3 SECONDS (9.7-12.2) 03/22/17 10:17 INR 1.0 03/22/17 10:17 APTT 30 SECONDS (21-34) 03/22/17 10:17 Assessment and Plan (1) Hyperlipidemia Status: Chronic (2) History of TIA (transient ischemic attack) Status: Acute (3) HTN (hypertension) Status: Chronic
== END 2017-03-24 16:30 | disposition home or self-care (01) ==
LOC: C.ER 08:10 → C.9E 12:05 → C.6T 14:38
PROVIDERS: ADMIT Hospitalist; ATTEND Hospitalist
DX: R53.1 Weakness (principal); R20.0 Anesthesia of skin; I10 Essential (primary) hypertension; E78.5 Hyperlipidemia, unspecified; Z86.73 Personal history of transient ischemic attack (TIA), and cerebral infarction without residual deficits; Z68.37 Body mass index [BMI] 37.0-37.9, adult
CPT/HCPCS: 36415; 70450; 70544; 70547; 70551; 71010; 80053; 80061; 82948; 83036; 83735; 84100; 84443; 84484; 85025; 85610; 85730; 93005; 93306; 96372; 97116; 97161; 97165; 97530; 99285; G0378; G8978; G8979; G8987; G8988; G8989; J1650; J2060; J3480

== ENCOUNTER 2017-11-02 16:47 | Emergency (ER) | payer OTHER ==
[2017-11-02 16:47] VITALS: BMI 37.4
[2017-11-02 18:01] VITALS: RESP 20
[2017-11-02 19:19] LABS: BASO % 0.5 % (0.0-2.0); EOS # 0.2 K/uL (0.0-0.7); EOS % 2.7 % (0.0-4.0); HEMOGLOBIN 12.2 g/dL (11.0-16.0); LYMPH # 2.5 K/uL (1.0-4.3); LYMPH % 38.8 % (20.0-40.0); MEAN CELL VOLUME 86.2 fL (81.0-99.0); MEAN CORPUSCULAR HEMOGLOBIN 29.4 pg (27.0-31.0); MEAN CORPUSCULAR HGB CONC 34.1 g/dL (33.0-37.0); MEAN PLATELET VOLUME 8.1 fL (7.2-11.7); MONO # 0.4 K/uL (0.0-0.8); MONO % 6.6 % (0.0-10.0); NEUT # 3.4 K/uL (1.8-7.0); NEUT % 51.4 % (50.0-75.0); NRBC % 0.1 % (0.0-2.0); RBC 4.16 Mil/uL (3.80-5.20); RED CELL DISTRIBUTION WIDTH 14.2 % (11.5-14.5); WHITE BLOOD COUNT 6.5 K/uL (4.8-10.8)
[2017-11-02 19:40] LABS: ALB/GLOB RATIO 1.1 (1.0-2.1); ALBUMIN 4.1 g/dL (3.5-5.0); ALT/SGPT 31 U/L (9-52); AST/SGOT 33 U/L (14-36); BLOOD UREA NITROGEN 9 mg/dL (7-17); CALCIUM 9.7 mg/dl (8.6-10.4); GFR AFRICAN-AMERICAN > 60; GFR NON-AFRICAN AMERICAN > 60
[2017-11-02] MEDS ORDERED: Potassium Chloride 20 mEq ER Tab PO STA (21:11)
[2017-11-02] MEDS ORDERED: Potassium Chloride 20 mEq ER Tab PO ONE (21:20)
[2017-11-02 21:26] VITALS: BP 150/84; PULSE 90; TEMP 98; O2SAT 98
--- NOTE | 2017-11-02 22:41 | C.PDOC ---
History Of Present Illness 56 year old female presents to the ED c/o sharp like substernal CP that started yesterday. Patient states her pain increases with dry cough and movement. Patient denies SOB, recent travel, sick contacts, nausea, vomit, diarrhea, abdominal pain. Chief Complaint (Nursing): Chest Pain History Per: Patient History/Exam Limitations: no limitations Onset/Duration Of Symptoms: Days Current Symptoms Are (Timing): Still Present Quality: Sharp Modifying Factors: None Exacerbating Factors: Movement, Other (Cough) Recent travel outside of the [place]: No Additional History Per: Patient Past Medical History Reviewed: Historical Data, Nursing Documentation, Vital Signs Vital Signs: Last Vital Signs Temp 98 F 11/02/17 21:25 Pulse 90 11/02/17 21:25 Resp 20 11/02/17 21:25 BP 150/84 11/02/17 21:25 Pulse Ox 98 11/02/17 22:44 - Medical History PMH: HTN, Hypercholesterolemia, TIA Denies: Chronic Kidney Disease Surgical History: No Surg Hx Family History: States: Unknown Family Hx - Social History Hx Alcohol Use: No Hx Substance Use: No - Immunization History Hx Tetanus Toxoid Vaccination: No Hx Influenza Vaccination: No Hx Pneumococcal Vaccination: No Review Of Systems Constitutional: Negative for: Fever ENT: Negative for: Nose Discharge, Nose Congestion Cardiovascular: Positive for: Chest Pain Respiratory: Negative for: Cough, Shortness of Breath Gastrointestinal: Negative for: Nausea, Vomiting, Abdominal Pain Genitourinary: Negative for: Dysuria Skin: Negative for: Rash Neurological: Negative for: Weakness, Numbness Physical Exam - Physical Exam Appears: Non-toxic, No Acute Distress Skin: Normal Color, Warm, Dry Head: Atraumatic, Normacephalic Eye(s): bilateral: Normal Inspection Nose: No Discharge, No Deformity Oral Mucosa: Moist Neck: Normal ROM, Supple Chest: Symmetrical, Tenderness (Reproducible substernal ) Cardiovascular: Rhythm Regular, No Murmur Respiratory: Normal Breath Sounds, No Rales, No Rhonchi, No Wheezing Gastrointestinal/Abdominal: Soft, No Tenderness, No Guarding, No Rebound Extremity: Normal ROM, No Pedal Edema, No Swelling Neurological/Psych: Oriented x3, Normal Speech, Normal Cognition Gait: Steady ED Course And Treatment - Laboratory Results Result Diagrams: 11/02/17 19:09 11/02/17 19:09 ECG: Interpreted By Me, Viewed By Me ECG Rhythm: Sinus Bradycardia ECG Interpretation: Normal Rate From EC O2 Sat by Pulse Oximetry: 98 (On RA) Pulse Ox Interpretation: Normal Medical Decision Making Medical Decision Making: Impression: Chest pain Plan: * EKG * Labs * CXR * Toradol 30 mg IVP * K-Dur 40 meq PO Patient states she feels better after taking her medications. Disposition - Disposition Referrals: [facility] Lesli Marcos, [Non-Staff] - Disposition: HOME/ ROUTINE Disposition Time: 20:05 Condition: GOOD Additional Instructions: Thank you for letting us take care of you today. The emergency medical care you received today was directed at your acute symptoms. If you were prescribed any medication, please fill it and take as directed. It may take several days for your symptoms to resolve. Return to the Emergency Department if your symptoms worsen, do not improve, or if you have any other problems. Please contact your doctor or call one of the physicians/clinics you have been referred to that are listed on the Patient Visit Information form that is included in your discharge packet. Bring any paperwork you were given at discharge with you along with any medications you are taking to your follow up visit. Our treatment cannot replace ongoing medical care by a primary care provider (PCP) outside of the emergency department. Thank you for allowing the [facility] team to be part of your care today. Follow up with your doctor in 2-3 days for re-evaluation and further management. Prescriptions: Ibuprofen [Motrin] 600 mg PO Q6 PRN #20 tab PRN Reason: Pain, Moderate (4-7) Instructions: Chest Pain That Is Not Caused by the Heart (DC) Forms: [employer] (Kyrgyz) - Clinical Impression Clinical Impression: Atypical chest pain, Hypokalemia - Scribe Statement The provider has reviewed the documentation as recorded by the Scribe Pineda Trotter All medical record entries made by the Scribe were at my direction and personally dictated by me. I have reviewed the chart and agree that the record accurately reflects my personal performance of the history, physical exam, medical decision making, and the department course for this patient. I have also personally directed, reviewed, and agree with the discharge instructions and disposition.
--- NOTE | 2017-11-03 08:23 | RAD ---
HISTORY: chest pain COMPARISON: Chest x-ray performed 03/22/17 TECHNIQUE: Chest, one view. FINDINGS: LUNGS: No focal consolidation. Please note that chest x-ray has limited sensitivity for the detection of pulmonary masses. PLEURA: No significant pleural effusion identified. No definite pneumothorax . CARDIOVASCULAR: Heart size appears within normal limits. OSSEOUS STRUCTURES: No acute osseous abnormality identified. VISUALIZED UPPER ABDOMEN: Unremarkable. OTHER FINDINGS: None. IMPRESSION: No focal consolidation identified.
--- NOTE | 2017-11-03 23:14 | CARD ---
APPROVED REPORT EKG Measurement Heart [id number] <Conclusion> Normal sinus rhythm Nonspecific T wave abnormality Abnormal ECG
== END 2017-11-02 21:24 | disposition home or self-care (01) ==
LOC: C.ER 16:47
DX: R07.89 Other chest pain (principal); E87.6 Hypokalemia
CPT/HCPCS: 71045; 80053; 84484; 85025; 93005; 96374; 99284; J1885